=== PATIENT | female | born 1990 | race African-American/Black ===

== ENCOUNTER 2017-12-01 08:26 | Emergency (ER) | payer SELFPAY ==
[2017-12-01 09:15] LABS: Absolute Lymphocytes (CBC) 2.1 K/uL (0.7-4.9); Absolute Monocytes 0.4 K/uL (0.1-1.3); Absolute Neutrophil 3.7 K/uL (1.8-8.0); Basophils % 0.5 % (0-1.3); Eosinophils % 2.2 % (0-4.4); Hematocrit 37.2 % (36.0-45.0); Lymphocytes % 32.9 % (15.3-44.8); MCV 90.6 fL (80-100); MPV 7.9 fL (7.6-11.3); Monocytes % 6.7 % (3.3-12.3); RBC Red Blood Cell Count 4.11 M/uL (3.86-4.86)
[2017-12-01 09:22] LABS: BUN Blood Urea Nitrogen 14 mg/dL (7-18); Bicarbonate 25 mmol/L (21-32); Glucose Level 82 mg/dL (74-106); Sodium Level 138 mmol/L (136-145); Troponin (Emerg Dept Use Only) < 0.02 ng/mL (0.0-0.045)
--- NOTE | 2017-12-01 10:12 | RAD REPORT ---
EXAM DESCRIPTION: CT - Chest For Pe Angio - 12/01/2017 9:52 am CLINICAL HISTORY: Chest pain. CHEST PAIN COMPARISON: No comparisons TECHNIQUE: CT angiogram of the pulmonary arteries was performed with MIP. All CT scans are performed using dose optimization technique as appropriate and may include automated exposure control or mA/KV adjustment according to patient size. FINDINGS: No evidence of pulmonary thromboembolism. No acute aortic finding demonstrated. The lungs are clear. No significant pericardial or pleural fluid. No concerning bony finding. IMPRESSION: No evidence of pulmonary thromboembolism. No acute lung findings.
--- NOTE | 2017-12-01 10:21 | ER ---
Nurse's Notes [facility] Name: Alisa Yanez Age: 27 yrs Sex: Female : 1990 Arrival Date: 12/01/2017 Time: 08:28 Bed 13 Private MD: Diagnosis: Chest pain on breathing Presentation: 12/01 08:37 Presenting complaint: Patient states: Left sided chest pain x 2 days. Pain is worse hb when deep inhalation and position change. Denies SOB/cough/fever/injury. Transition of care: patient was not received from another setting of care. Onset of symptoms was November 29, 2017. Risk Assessment: Do you want to hurt yourself or someone else? Patient reports no desire to harm self or others. Care prior to arrival: None. 08:37 Method Of Arrival: Ambulatory hb 08:37 Acuity: EBEN 3 hb 08:50 Initial Sepsis Screen: Does the patient meet any 2 criteria? No. Patient's initial la1 sepsis screen is negative. Does the patient have a suspected source of infection? No. Patient's initial sepsis screen is negative. 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 - Social history:: Smoking status: Patient/guardian denies using tobacco. - Ebola Screening: : No symptoms or risks identified at this time. Screenin:39 Abuse screen: Denies threats or abuse. Denies injuries from another. Nutritional hb screening: No deficits noted. Tuberculosis screening: No symptoms or risk factors identified. Fall Risk None identified. Assessment: 08:49 General: Appears in no apparent distress. Behavior is calm, cooperative. Pain: la1 Complains of pain in mid-sternal area Pain does not radiate. Pain began 2-3 days ago. Neuro: Level of Consciousness is awake, alert, obeys commands, Oriented to person, place, time, situation. Cardiovascular: Heart tones S1 S2 present Capillary refill < 3 seconds Patient's skin is warm and dry. Respiratory: Airway is patent Respiratory effort is even, unlabored, Respiratory pattern is regular, symmetrical, Breath sounds are clear bilaterally. GI: Abdomen is. : No signs and/or symptoms were reported regarding the genitourinary system. Vital Signs: 08:38 BP 122 / 69; Pulse 92; Resp 16; Temp 98.2; Pulse Ox 99% on R/A; Pain 6/10; hb ED Course: 08:28 Patient arrived in ED. as 08:32 Rachel Velazquez [facility]NP-C [facility]. kb 08:32 Danilo Cifuentes MD is Attending Physician. kb 08:37 Tera Beckman, RN is Primary Nurse. la1 08:37 EKG done, by agricultural service technician. reviewed by Rachel DELGADO. at1 08:38 Triage completed. hb 08:38 Arm band placed on right wrist. hb 08:49 No provider procedures requiring assistance completed. Inserted saline lock: 22 gauge la1 in left antecubital area, using aseptic technique. Blood collected. Patient maintains SpO2 saturation greater than 95% on room air. 08:50 Placed in gown. Bed in low position. Call light in reach. Pulse ox on. NIBP on. la1 09:00 Chest Pa And Lat (2 Views) XRAY In Process Unspecified. EDMS 09:37 Patient moved to radiology. jg6 09:52 Chest For PE Angio CT In Process Unspecified. EDMS 10:34 IV discontinued, intact, bleeding controlled, No redness/swelling at site. Pressure hb dressing applied. Administered Medications: 10:34 Not Given (Patient Refused): TORadol 30 mg IVP once hb Outcome: 10:20 Discharge ordered by . kb 10:34 Discharged to home ambulatory, with family. hb 10:34 Condition: stable 10:34 Discharge instructions given to patient, Instructed on discharge instructions, follow up and referral plans. medication usage, Demonstrated understanding of instructions, follow-up care, medications. 10:35 Patient left the ED. hb Signatures: Dispatcher [employer] EDMS Rachel Velazquez FNP-C FNP-Eloise Alonzo Amanda, manager field investigations EKG Tat1 Tera Beckman RN RN la1 Jennifer Avila RN RN hb Garcia, Jessica [email or web address] Corrections: (The following items were deleted from the chart) 08:39 08:37 Presenting complaint: Patient states: Left sided chest pain x 2 days. Pain is hb worse when deep inhalation and position change. Denies SOB/fever/injury. hb
--- NOTE | 2017-12-01 10:21 | EDPHYS ---
Physician Documentation [facility] Name: Alisa Yanez Age: 27 yrs Sex: Female : 1990 Arrival Date: 12/01/2017 Time: 08:28 Bed 13 Private MD: ED Physician Danilo Cifuentes HPI: 12/01 08:40 This 27 yrs old Black Female presents to ER via Ambulatory with complaints of Chest kb Pain. 08:40 The patient or guardian reports chest pain that is located primarily in the anterior kb aspect of left upper chest and mid-sternal area. The pain does not radiate. Associated signs and symptoms: The patient has no apparent associated signs or symptoms. The chest pain is described as sharp. Duration: The patient or guardian reports multiple episodes. Modifying factors: The symptoms are alleviated by nothing. the symptoms are aggravated by activity, breathing, deep breath, movement, palpation of area. Severity of pain: At its worst the pain was moderate in the emergency department the pain is unchanged. The patient has not experienced similar symptoms in the past. The patient has not recently seen a physician. Pt reports pain to mid and left chest that started 2 days ago. Worse with inspiration, movement and palpation. Denies shortness of breath. Denies injury or trauma. . 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 - Social history:: Smoking status: Patient/guardian denies using tobacco. - Ebola Screening: : No symptoms or risks identified at this time. ROS: 08:36 Constitutional: Negative for fever, chills, and weight loss, Respiratory: Negative for kb shortness of breath, cough, wheezing, and pleuritic chest pain, Abdomen/GI: Negative for abdominal pain, nausea, vomiting, diarrhea, and constipation, Back: Negative for injury and pain, MS/Extremity: Negative for injury and deformity, Skin: Negative for injury, rash, and discoloration, Neuro: Negative for headache, weakness, numbness, tingling, and seizure. 08:36 Cardiovascular: Positive for chest pain, with movement, of the anterior aspect of left upper chest and mid-sternal area, Negative for edema, orthopnea, palpitations, paroxysmal nocturnal dyspnea. Exam: 08:36 Constitutional: This is a well developed, well nourished patient who is awake, alert, kb and in no acute distress. Head/Face: Normocephalic, atraumatic. Cardiovascular: Regular rate and rhythm with a normal S1 and S2. No gallops, murmurs, or rubs. Normal PMI, no JVD. No pulse deficits. Respiratory: Lungs have equal breath sounds bilaterally, clear to auscultation and percussion. No rales, rhonchi or wheezes noted. No increased work of breathing, no retractions or nasal flaring. Abdomen/GI: Soft, non-tender, with normal bowel sounds. No distension or tympany. No guarding or rebound. No evidence of tenderness throughout. Back: No spinal tenderness. No costovertebral tenderness. Full range of motion. Skin: Warm, dry with normal turgor. Normal color with no rashes, no lesions, and no evidence of cellulitis. MS/ Extremity: Pulses equal, no cyanosis. Neurovascular intact. Full, normal range of motion. Neuro: Awake and alert, GCS 15, oriented to person, place, time, and situation. Cranial nerves II-XII grossly intact. Motor strength 5/5 in all extremities. Sensory grossly intact. Cerebellar exam normal. Normal gait. 08:36 Chest/axilla: Inspection: normal, Palpation: tenderness, that is moderate, of the anterior aspect of left upper chest and mid-sternal area, that totally reproduces the patient's complaints. Vital Signs: 08:38 BP 122 / 69; Pulse 92; Resp 16; Temp 98.2; Pulse Ox 99% on R/A; Pain 6/10; hb MDM: 08:35 Patient medically screened. kb 08:36 Data reviewed: vital signs, nurses notes. Data interpreted: Pulse oximetry: on room air kb is 100 %. Interpretation: normal. 10:20 Counseling: I had a detailed discussion with the patient and/or guardian regarding: the kb historical points, exam findings, and any diagnostic results supporting the discharge/admit diagnosis, lab results, radiology results, the need for outpatient follow up, a family practitioner, to return to the emergency department if symptoms worsen or persist or if there are any questions or concerns that arise at home. 12/01 08:36 Order name: CBC with Diff; Complete Time: 09:18 kb 12/01 08:36 Order name: Basic Metabolic Panel; Complete Time: 09:22 kb 12/01 08:36 Order name: Troponin (emerg Dept Use Only); Complete Time: 09:22 kb 12/01 08:36 Order name: D-Dimer; Complete Time: 09:21 kb 12/01 09:56 Order name: Urine Dipstick--Ancillary (enter results); Complete Time: 10:32 bd 12/01 09:56 Order name: Urine --Ancillary (enter results); Complete Time: 10:32 bd 12/01 08:36 Order name: Chest Pa And Lat (2 Views) XRAY kb 12/01 08:36 Order name: IV Start; Complete Time: 08:50 kb 12/01 08:36 Order name: EKG; Complete Time: 08:37 kb 12/01 08:36 Order name: EKG - Nurse/Tech; Complete Time: 08:50 kb 12/01 09:19 Order name: Chest For PE Angio CT; Complete Time: 10:18 kb 12/01 09:19 Order name: Urine Test (obtain specimen); Complete Time: 09:38 kb Administered Medications: 10:34 Not Given (Patient Refused): TORadol 30 mg IVP once hb Disposition: 12/01/17 10:20 Discharged to Home. Impression: Chest pain on breathing. - Condition is Stable. - Discharge Instructions: Chest Wall Pain, [id number]. - Medication Reconciliation Form, Thank You Letter, Antibiotic Education, Prescription Opioid Use form. - Follow up: Emergency Department; When: As needed; Reason: Worsening of condition. Follow up: Private Physician; When: 2 - 3 days; Reason: Recheck today's complaints, Continuance of care, Re-evaluation by your physician. Addendum: 12/11/2017 08:00 Co-signature as Attending Physician, Danilo Cifuentes MD I agree with the assessment and k dr plan of care. Signatures: Dispatcher [employer] EDMS Rachel Velazquez, GANG LEADER-C DILEEP-Danilo Perez MD MD [facility] Jennifer Avila RN RN Corrections: (The following items were deleted from the chart) 12/01 10:35 10:20 12/01/2017 10:20 Discharged to Home. Impression: Chest pain on breathing. hb Condition is Stable. Forms are Medication Reconciliation Form, Thank You Letter, Antibiotic Education, Prescription Opioid Use. Follow up: Emergency Department; When: As needed; Reason: Worsening of condition. Follow up: Private Physician; When: 2 - 3 days; Reason: Recheck today's complaints, Continuance of care, Re-evaluation by your physician. kb
--- NOTE | 2017-12-01 10:27 | EKG ---
Test Date: 2017-12-01 Test Time: 08:38:43 [place]: GRETCHEN MEASUREMENT RESULTS: Intervals: Rate: 67 LA: 126 QRSD: 86 QT: 380 QTc: 401 [place]: P: 77 LA: 126 QRS: 29 T: 29 INTERPRETIVE STATEMENTS: Normal sinus rhythm Normal ECG No previous ECG available for comparison Electronically Signed On 12-01-17 10:26:05 CDT by Rex Burrell
[2017-12-01 10:29] LABS: Urine Blood 2+ (NEG); Urine Glucose NEGATIVE (NEG); Urine Protein NEGATIVE (NEG); Urine Specific Gravity >1.030 (1.005-1.030); Urine pH 5.5 (5.0-7.0)
[2017-12-01] MEDS ORDERED: KETOROLAC 30 MG/ML INJ ONE (10:34)
[2017-12-01 10:39] VITALS: BP 122/69; TEMP 98.2; O2SAT 99
--- NOTE | 2017-12-01 16:54 | RAD REPORT ---
EXAM DESCRIPTION: Seymour Krause (2 Views)12/01/2017 9:02 am CLINICAL HISTORY: Chest pain COMPARISON: none FINDINGS: The lungs appear clear of acute infiltrate. The heart is normal size IMPRESSION: No acute abnormalities displayed
== END 2017-12-01 10:35 | disposition home or self-care (01) ==
LOC: ER 08:26
DX: R07.1 Chest pain on breathing (principal)
CPT/HCPCS: 36415; 71046; 71275; 80048; 81003; 81025; 84484; 85025; 85379; 93005; 99284; Q9967

== ENCOUNTER 2022-12-04 08:48 | Emergency (ER) | payer SELFPAY ==
--- OUTSIDE RECORDS SUMMARY | 2022-12-04 08:52 | XMS REPORT | Continuity of Care Document ---
:1990 Author Organization [facility] t Address [address] [place] [address] Care Team Providers Name Role Phone JACOBO PARRA Primary Care Physician Unavailable VALENTINA PATEL Attending Clinician Unavailable Valentina Patel MD Attending Clinician Doctor Unassigned, [place] Attending Clinician Unavailable VALENTINA PATEL Admitting Clinician Unavailable Valentina Patel MD Admitting Clinician Payers Payer Name Policy Type Policy Number Effective Date Expiration Date S ource [place]ICAID [place] [id number] 2016 2019 00:00:00 00:00:00 Problems Condition Condition Condition Status Onset Resolution Last Treating Co mments Source Name Details Category Date Date Treatment Clinician Date PROM PROM Disease Active Univers (premature (premature 5-11 it y of rupture of rupture of [place] membranes[place] membranes) 00 Mi dical Branch Liveborn Liveborn Disease Active 2016-02 Unive rs by infant by 0-17 ity of vaginal vaginal 00:00: [place] delivery delivery 00 Medica l Branch Normal Normal Disease Active 2016-02 Univers labor and labor and 0-17 ity of delivery delivery 00:00: [place] [address] Medical Branch Obesity Obesity Disease Active 2016-02 Univers (BMI (BMI 0-17 ity of 30-39.9) 30-39.9) 00:00: [place] [address] Medical Branch Normal Normal Disease Active 2016-02 Univers labor labor 0-17 ity of 00:00: [place] [address] Medical Branch No No Disease Active 2016-02 Univers 0-17 ity of care in care in 00:00: [place] current current 00 Medical , , Br anch third third trimester trimester Allergies, Adverse Reactions, Alerts Allergy Allergy Status Severity Reaction(s) Onset Inactive Treating Comm ents Source Name Type Date Date Clinician NO KNOWN Drug Active Univers ALLERGIE Class ity of [facility] Social History Social Habit Start Date Stop Date Quantity Comments Source ASSERTION [facility] Sex Assigned At Uni versity [facility] Exposure to SARS-CoV-2 Not sure Un iversity [facility] (event) [facility] Smoking Status Start Date Stop Date Source Former smoker 2019-06-05 00:00:00 2019-06-05 00:00:00 Universi [facility] Medications Ordered Filled Start Stop Current Ordering Indication Dosage Frequency Signature Comments Components Source Medication Medication Date Date Medication? Clinician (SIG) Name Name medroxyPROG 150mg 150 mg, U nivers ESTERone 5-12 05-12 Intramuscu ity of (DEPO-PROVE 14:15: 14:08 lar, ONCE, [place] RA) 00 :00 1 dose, Medical injection Tue Branch 150 mg 20 at 0915, Routine 2019-0 Yes [id number] 1{tbl} Take 1 Univers vitamin 5-12 tablet by ity of w/FA tablet 00:00: mouth [place] daily. Medical Branch docusate 2020-0 Yes [id number] 240mg Take 1 U nivers calcium 240 5-12 capsule by it y of mg capsule 00:00: mouth once [place] 00 daily as Medical needed for Branch Constipati on. ferrous 2020-0 Yes [id number] 325mg Take 1 Un lisa sulfate 325 5-12 tablet by ity of mg (65 mg 00:00: mouth 2 [place] iron) 00 (two) Medical tablet times Branch daily. ibuprofen 2020-0 Yes [id number] 600mg Take 1 Univers 600 mg 5-12 tablet by ity of tablet 00:00: mouth [place] 00 every 6 Medical (six) Branch hours as needed (Pain). Take with food or milk. 2020-0 Yes [id number] 1{tbl} Take 1 Univers vitamin 5-12 tablet by ity of w/FA tablet 00:00: mouth [place] 00 daily. Medical Branch docusate 2020-0 Yes [id number] 240mg Take 1 U nivers calcium 240 5-12 capsule by it y of mg capsule 00:00: mouth once [place] 00 daily as Medical needed for Branch Constipati on. ferrous 2020-0 Yes [id number] 325mg Take 1 Un lisa sulfate 325 5-12 tablet by ity of mg (65 mg 00:00: mouth 2 [place] iron) 00 (two) Medical tablet times Branch daily. ibuprofen 2020-0 Yes [id number] 600mg Take 1 Univers 600 mg 5-12 tablet by ity of tablet 00:00: mouth [place] 00 every 6 Medical (six) Branch hours as needed (Pain). Take with food or milk. rho(D) 2020-0 Yes 300ug 300 mcg, Univer s immune 5-11 Intramuscu ity of globulin 21:39: lar, ONCE, [place] (RHOGAM) 19 For 1 Medical syringe 300 dose, Branch mcg Conditiona l, Routine HYDROcodone 2020-0 Yes 1{tbl} 1 tablet, Univers -acetaminop 5-11 Oral, ity of hen (NORCO 21:39: Q6HPRN, [place] 5) 5-325 mg 14 Starting Medi arin tablet 1 Mon Branch tablet 06/19/19 at 1639, Until Discontinu ed, Routine, Pain (scale 7-10) ibuprofen 2020-0 Yes 600mg 600 mg, Univ ers (IBU) 5-11 Oral, ity of tablet 600 21:39: Q6HPRN, [place] mg 14 Starting Medical Mon Branch 06/19/19 at 1639, Until Discontinu ed, Routine, Pain (scale 4-6) acetaminoph 2020-0 Yes 650mg 650 mg, Un lisa en 5-11 Oral, ity of (TYLENOL) 21:39: Q6HPRN, [place] tablet 650 14 Starting Medic al mg Mon Branch 06/19/19 at 1639, Until Discontinu ed, Routine, Pain (scale 1-3) diphenhydrA 2020-0 Yes 25mg 25 mg, Univ ers MINE 5-11 Oral, ity of (BENADRYL) 21:39: Q6HPRN, [place] tablet 25 14 Starting Medica l mg Mon Branch 06/19/19 at 1639, Until Discontinu ed, Routine, Sleep, Itching ondansetron 2020-0 Yes 4mg 4 mg, Slow Univers (ZOFRAN 5-11 IV Push, ity of (PF)) 21:39: Q8HPRN, [place] injection 4 14 Starting Medi arin mg [facility] Branch 06/19/19 at 1639, Until Discontinu ed, Routine, Nausea and Vomiting (N/V) simethicone 2020-0 Yes 160mg 160 mg, Un lisa (GAS RELIEF 5-11 Oral, ity of (SIMETHICON 21:39: PC+HSPRN, [place] E)) 14 Starting Medical chewable [facility] tablet 160 06/19/19 at mg 1639, Until Discontinu ed, Routine, Gas docusate 2020-0 Yes 240mg 240 mg, Unive rs calcium 5-11 Oral, ity of (SURFAK) 21:39: QDAILYPRN, [place] capsule 240 14 Starting Medi arin mg [facility] Branch 06/19/19 at 1639, Until Discontinu ed, Routine, Constipati on magnesium 2020-0 Yes 30mL 30 mL, Univer s hydroxide 06-18 Oral, ity of (MILK OF 21:39: QDAILYPRN, [place] MAGNESIA) 14 Starting Medica l 400 mg/5 mL Mon [place] suspension 06/19/19 at 30 mL 1639, Until Discontinu ed, Routine, Constipati on benzocaine- 2020-0 Yes Topical, Un lisa menthol 5-11 PRN, ity of (DERMOPLAST 21:39: [place] ) 20-0.5 % 14 Mon Medical topical 06/19/19 at Branch spray 1639, Until Discontinu ed, Routine, Perineum discomfort LR 1000 mL 2019-0 2020- No 2mU/min at 6-120 Univers + oxytocin 06-18 05-11 mL/hr, IV ity of 20 units IV 20:55: 21:39 Infusion, [place] Solution 28 :20 TITRATE, Medical Starting Branch 06/19/19 at 1555, Until 06/19/19 at 1639, JOEL D5W-LR IV 2019-0 2020- No 1000mL at 125 Uni vers infusion 06-18 05-11 mL/hr, IV ity o f 1,000 mL 20:00: 21:39 Infusion, [place] 00 :20 CONTINUOUS Medical , Starting Branch 06/19/19 at 1500, Until 06/19/19 at 1639, Routine FENTanyl PF 2020-0 2020- No 100ug 100 mcg, Univers (SUBLIMAZE 06-18 Slow IV ity o f (PF)) 19:46: 21:39 Push, [place] injection 14 :20 Q1HPRN, Medical 100 mcg Starting Branch [facility] 06/19/19 at 1446, Until Wed06/19/19 at 1639, Routine, contractio n pain without an epidural and SVE < 8 cm and Cat I strip lactated 2020-0 2020- No 500mL at 999 Unive rs ringers IV 06-18-11 mL/hr, 500 it y of infusion 19:45: 21:39 mL, IV [place] 500 mL 16 :20 Infusion, Medical PRN - SEE Branch INSTRUCTIO NS, Starting Wed06/19/19 at 1445, Until Wed06/19/19 at 1639, Routine terbutaline 2020-0 2020- No .25mg 0.25 mg, Univers (BRETHINE) 06-05 Subcutaneo it y of injection 00:55: 00:59 us, ONCE, [place] 0.25 mg 00 :00 1 dose, Medical [facility] 06/05/19 at 2000, Routine D5W-LR IV 2020-0 Yes 1000mL at 150 Univ ers infusion 4-27 mL/hr, IV ity of 1,000 mL 21:00: Infusion, [place] 00 CONTINUOUS Medical , Starting Branch [facility] 06/05/19 at 1600, Until Discontinu ed, Routine lactated 2020-0 2020- No 1000mL at 999 Univ ers ringers IV 06-04 04-27 mL/hr, ity of infusion 21:00: 21:04 1,000 mL, [place] 1,000 mL 00 :00 IV Medical Infusion, Branch ONCE, 1 dose, [facility] 06/05/19 at 1600, STAT 2016- Yes 1{tbl} Take 1 Unive rs vitamin 0-19 tablet by ity of w/FA tablet 00:00: mouth [place] 00 daily. [facility] docusate 2016-02 Yes 240mg Take 1 Univer s calcium 240 0-19 capsule by it y of mg capsule 00:00: mouth once [place] 00 daily as Medical needed for Branch Constipati on. ferrous 2016-02 Yes 325mg Take 1 Univers sulfate 325 0-19 tablet by ity of mg (65 mg 00:00: mouth 2 [place] iron) 00 (two) Medical tablet times Branch daily. ibuprofen 2016-02 Yes 600mg Take 1 Unive rs 600 mg 0-19 tablet by ity of tablet 00:00: mouth [place] 00 every 6 Medical (six) Branch hours as needed for Pain (scale 1-3) or Pain (scale 4-6) (Pain). Take with food or milk. 2016-02- No 1{tbl} Take 1 Univ ers vitamin 0-19 05-12 tablet by ity of w/FA tablet 00:00: 00:00 [place] :[place] daily. Medical Branch docusate 2016-02- No 240mg Take 1 Unive rs calcium 240 0-19 05-12 capsule by i ty of mg capsule 00:00: 00:00 mouth once [place] 00 :00 daily as Medical needed for Branch Constipati on. ferrous 2016-02- No 325mg Take 1 Univer s sulfate 325 0-19 05-12 tablet by it y of mg (65 mg 00:00: 00:00 mouth [place] iron) 00 :00 (two) Medical tablet times Branch daily. ibuprofen 2016-02- No 600mg Take 1 Univ ers 600 mg 0-19 05-12 tablet by ity of tablet 00:00: 00:00 mouth [place] 00 :00 every 6 Medical (six) Branch hours as needed for Pain (scale 1-3) or Pain (scale 4-6) (Pain). Take with food or milk. Vital Signs Vital Name Observation Time Observation Value Comments Source Body temperature 2019-06-21 13:00:00 36.72 Shalini [facility] Respiratory rate 2019-06-21 13:00:00 16 /min [facility] Oxygen saturation in 2019-06-21 13:00:00 100 /min [facility] Arterial blood by [facility] Pulse oximetry Branch Systolic blood 2019-06-21 13:00:00 118 mm[Hg] Univer sity of pressure [facility] Diastolic blood 2019-06-21 13:00:00 69 mm[Hg] [facility] Heart rate 2019-06-21 13:00:00 72 /min Universi [facility] Body weight 2019-06-19 19:45:00 86.183 kg [facility] BMI 2019-06-19 19:45:00 32.61 kg/m2 Universi [facility] Body height 2019-06-19 19:20:00 162.6 cm [facility] Systolic blood 2019-06-06 01:00:00 107 mm[Hg] [facility] Diastolic blood 2019-06-06 01:00:00 69 mm[Hg] [facility] rate 2019-06-06 01:00:00 85 /min [facility] Respiratory rate 2019-06-06 01:00:00 18 /min [facility] Oxygen saturation in 2019-06-06 00:30:00 100 /min [facility] Arterial blood by [facility] Pulse oximetry [place] Body temperature 2019-06-06 00:00:00 36.61 Shalini [facility] Body height 2019-06-05 19:26:00 162.6 cm [facility] Body weight 2019-06-05 19:26:00 65.318 kg [facility] BMI 2019-06-05 19:26:00 24.72 kg/m2 [facility] Procedures Procedure Date / Time Performing Clinician Source Performed CBC WITH DIFFERENTIAL 2019-06-20 09:27:00 Valentina Patel [facility] VENOUS CORD GAS 2019-06-19 21:29:[address] [facility] CORONAVIRUS COVID-19 2019-06-19 20:13:00 Valentina Patel [facility] HB ABO GROUPING 2019-06-19 20:00:[address] [facility] RHO (D) IMMUNE GLOBULIN 2019-06-19 20:00:00 Valentina Patel [facility] CBC WITH DIFFERENTIAL 2019-06-19 19:52:00 Valentina Patel [facility] HEPATITIS B SURFACE 2019-06-19 19:52:00 Valentina Patel [facility] ADC OR ERVIN ONLY - RPR 2019-06-19 19:52:00 [facility] AG-AB WITH REFLEX 2019-06-19 19:52:00 [facility] HOSPITAL ADMISSION 2019-06-19 05:01:00 Doctor Unacesar, [facility] [place] Medical Branch US PELVIS > 14 2019-06-05 22:36:14 [facility] ADC CLC OR LCC ONLY - WET 2019-06-05 20:48:00 [facility] Branch AMYLASE 2019-06-05 20:41:00 Valentina Patel [place] [facility] [place] [facility] LIPASE 2019-06-05 20:41:00 Valentina Patel [place] [facility] COMP. METABOLIC PANEL 2019-06-05 20:41:00 Valentina Patel [facility] ([id number]) [facility] CBC WITH DIFFERENTIAL 2019-06-05 20:41:00 Valentina Patel [facility] HEPATITIS B SURFACE 2019-06-05 20:41:00 Valentina Patel [facility] ANTIGEN [facility] Branch HIV 1/2 AG-AB WITH REFLEX 2019-06-05 20:41:00 [facility] 2019-06-05 20:40:00 Valentina Patel [place] o [facility] PATIENT FINANCIAL 2019-06-05 18:57:16 Doctor Unasaturninoigned, [facility] POLICY [place] [facility] NO SHOW OR MISSED 2019-06-05 18:56:55 Doctor Pedro, [facility] APPOINTMENT POLICY [place] [facility] Bran h ACKNOWLEDGEMENT NOTICE OF PRIVACY 2019-06-05 18:55:55 Doctor Unacesar, [facility] PRACTICES [place] [facility] CONSENT/REFUSAL FOR 2019-06-05 18:55:38 Doctor Pedro, [facility] DIAGNOSIS AND TREATMENT [place] [facility] ASSIGNMENT OF BENEFITS 2019-06-05 18:55:22 Doctor Unassigned, [facility] [place] [facility] [place] Encounters Start End Encounter Admission Attending Care Care Encounter Source Date/Time Date/Time Type Type Clinicians Facility Department ID 2019-06-19 Inpatient P VALENTINA PATEL [facility] LASHA [id number] Univers 14:38:31 ity of [place] Medical Branch 2019-06-19 2019-06-21 [facility] Valentina Patel [facility] [id number] Univers 14:38:31 11:30:00 Encounter [place] [id number] ity of [place] [id number] [address] 2019-06-19 2019-06-19 Orders Doctor SOHAIL [id number] Univers 00:00:00 00:00:00 Only Unassigned, JERED [id number] [place] [facility] [id number] [place] [id number] [place] [address] Branch 2019-06-05 2019-06-05 [facility] Valentina Patel [facility] [id number] Univers 13:55:00 21:40:00 Encounter Gaston Echevarria [id number] ity of [place] [id number] [facility] [id number] [address] 2019-06-05 2019-06-05 Outpatient P VALENTINA PATEL [facility] LASHA [id number] Univers 13:55:00 21:40:00 ity of [facility] Results Test Description Test Time Test Comments Results Result Comments Source CBC WITH DIFFERENTIAL 2019-06-20 10:03:00 Test Item Value Reference Range Interpretation Comme nts WBC (test code = 6690-2) See_Comment [A utomated message] The system which ge nerated this result transmit laisha reference range: 4.30 - 1 1.10 10*3/?L. The reference r gregg was not used to interpr et this result as normal/abnor mal. RBC (test code = 789-8) See_Comment L [Au tomated message] The system which [employer] nerated this result transmit laisha reference range: 3.93 - 5 .25 10*6/?L. The reference r gregg was not used to interpr et this result as normal/abnor mal. HGB (test code = 718-7) 8.0 g/dL 11.6-15 L HCT (test code = 4544-3) 26.0 % 35.7-45.2 L MCV (test code = 787-2) 88.1 fL 80.6-95.5 MCH (test code = 785-6) 27.1 pg 25.9-32.8 MCHC (test code = 786-4) 30.8 g/dL 31.6-35.1 L RDW-SD (test code = 65671-4) 43.4 fL 39-49.9 RDW-CV (test code = 788-0) 13.5 % 12-15.5 PLT (test code = 777-3) See_Comment [Au tomated message] The system which ge nerated this result transmit laisha reference range: 166 - 35 8 10*3/?L. The reference range was not used to interpret th is result as normal/abnormal . MPV (test code = 88905-7) 10.3 fL 9.5-12.9 NRBC/100 WBC (test code = See_Comment [ Automated message] The 2734380941) system which ge nerated this result transmit laisha reference range: 0.0 - 10 .0 /100 WBCs. The reference r gregg was not used to interpr et this result as normal/abnor mal. NRBC x10^3 (test code = <0.01 See_Comment [Au tomated message] The 9493874756) system which ge nerated this result transmit laisha reference range: 10*3/?L. The reference range was not u sed to interpret this result as normal/abnormal . GRAN MAT (NEUT) % (test code 74.8 % = 770-8) IMM GRAN % (test code = 0.50 % 6021564296) LYMPH % (test code = 736-9) 15.9 % MONO % (test code = 5905-5) 7.9 % EOS % (test code = 713-8) 0.6 % BASO % (test code = 706-2) 0.3 % GRAN MAT x10^3(ANC) (test 8.23 10*3/uL 1.88-7.09 H code = 9907251181) IMM GRAN x10^3 (test code = 0.05 10*3/uL 0-0.06 6945922553) LYMPH x10^3 (test code = 1.75 10*3/uL 1.32-3.29 731-0) MONO x10^3 (test code = 0.87 10*3/uL 0.33-0.92 742-7) EOS x10^3 (test code = 0.07 10*3/uL 0.03-0.39 711-2) BASO x10^3 (test code = 0.03 10*3/uL 0.01-0.07 704-7) Lab Interpretation (test Abnormal code = 87862-4) [facility] - [id number] 06:01:00 Test Item Value Reference Range Interpretation Comments RPR (Qualitative) (test code = Nonreactive Nonreactive 57524-6) Lab Interpretation (test code = Normal 12202-8) [facility] Surface [id number] 23:41:00 Test Item Value Reference Range Interpretation Comments HBsAg Semi-Quantitative (test code = Negative Negative 5195-3) [facility]D) IMMUNE [id number] 22:17:30 Test Item Value Reference Range Interpretation Comments RHIG CANDIDATE? No- see comment Patient i s not a (test code = candidate for R hIg- 5055) Patient is Rh Positive.Perfor med at [facility] Laboratory Services - [facility] Blood [address] [place], [place] [address]Toll Free: [phone] A No. [id number] [facility]HIV [facility]2 AG-AB WITH [id number] 21:59:00 Test Item Value Reference Range Interpretation Comments HIV Negative Negative Semi-quantitative (test code = 03064-1) FATEMEH (test code = Non-reactive for HIV-1 FATEMEH) antigen and HIV-1/HIV-2 antibodies. ?No laboratory evidence of HIV infection. ?Repeat in 2-4 weeks if acute HIV infection is suspected. [facility] Center[facility] Cord [id number] 21:36:00 Test Item Value Reference Range Interpretation Comments VENOUS BASE EXCESS, mEq/L CORD (test code = 1633190503) VENOUS PH, CORD (test 7.25-7.45 code = 4129564163) VENOUS PC02, CORD See_Comment [Automate d message] The (test code = system which ge nerated 1741911468) this result tra nsmitted reference range : 27 - 49 mmHg. The refer ence range was not used to interpret this result as normal/abnormal . VENOUS PO2, CORD (test See_Comment [Aut omated message] The code = 9280554162) system [facility] generated this result tra nsmitted reference range : 17 - 41 mmHg. The refer ence range was not used to interpret this result as normal/abnormal . VENOUS BICARBONATE, See_Comment [Automa laisha message] The CORD (test code = system [facility] ch generated [id number]) this result tra nsmitted reference range : 12 - 29 mEq/L. The refe rence range was not used to interpret this result as normal/abnormal . [facility] Center[facility] Cord [id number] 21:33:00 Test Item Value Reference Range Interpretation Comments BASE EXCESS, CORD mEq/L (test code = 7069643982) AC PH, CORD (BEAKER) 7.18-7.38 (test code = 5806652051) PC02, CORD (test code See_Comment [Auto mated message] The = 3475464375) system which g enerated this result transmit laisha reference range : 32 - 66 mmHg. The refer ence range was not used to interpret this result as normal/abnormal . PO2, CORD (test code See_Comment [Autom ated message] The = 3717571700) system which g enerated this result transmit laisha reference range : 10 - 30 mmHg. The refer ence range was not used to interpret this result as normal/abnormal . BICARBONATE, CORD See_Comment [Automate d message] The (test code = system which ge nerated this 2299829668) result transmit laisha reference range : 17 - 27 mEq/L. The refe rence range was not used to interpret this result as normal/abnormal . [facility] CenterCORON[facility]IRUS COVID-19 [id number] 20:46:00 Test Item Value Reference Range Interpretation Comments SARS-CoV-2 (test code = Not Detected Not Detected 25736-9) FATEMEH (test code = FATEMEH) ID NOW COVID-19 Assay is an isothermal nucleic acid amplification test intended for the qualitative detection of nucleic acid from SARS-CoV-2 viral RNA in nasopharyngeal (SENIOR MARKETING COORDINATOR) specimens. It is used under Emergency Use Authorization (EUA) by FDA. The limit of detection (LOD) of the assay is 125 Genome Equivalents/mL. A positive result is indicative of the presence of SARS-CoV-2 RNA. ?Clinical correlation with patient history and other diagnostic information is necessary to determine patient infection status. A negative (Not Detected) result does not preclude SARS-CoV-2 infection. Clinical correlation with patient history and other diagnostic information should be used in patient management decisions. Invalid: Please collect a new specimen for repeat patient testing if clinically indicated. Lab Interpretation Normal (test code = 70412-7) [facility] CenterType and Screen - ONCE [id number] 20:45:47 Test Item Value Reference Range Interpretation Comments ABO & RH (test code A Positive Performe d at [facility] = 20) Laboratory Serv [facility] Blood Bank[address] [place], [place] [address]Toll Free: [phone] A No. [id number] IAT (test code = Negative Performed a t [facility] 1185) Laboratory Serv [facility] Blood Bank1 [address] [place] [address] Free: [phone] A No. [id number] [facility] CenterCBC WITH [id number] 20:19:00 Test Item Value Reference Range Interpretation Comments WBC (test code = See_Comment [Automated 0990-2) message] The sy stem which generated this result transmitted reference range : 4.30 - 11.10 10*3/?L. The reference range was not used to interpret this result as normal/abnormal . RBC (test code = See_Comment L [Automated 719-8) message] The sy stem which generated this result transmitted reference range : 3.93 - 5.25 10*6/?L. The reference range was not used to interpret this result as normal/abnormal . HGB (test code = 9.5 g/dL 11.6-15 L 718-7) HCT (test code = 31.1 % 35.7-45.2 L 4544-3) MCV (test code = 88.1 fL 80.6-95.5 787-2) MCH (test code = 26.9 pg 25.9-32.8 785-6) MCHC (test code = 30.5 g/dL 31.6-35.1 L 786-4) RDW-SD (test code = 43.8 fL 39-49.9 06050-9) RDW-CV (test code = 13.5 % 12-15.5 788-0) PLT (test code = See_Comment H [Automated 777-3) message] The sy stem which generated this result transmitted reference range : 166 - 358 10*3/ ?L. The reference r gregg was not used to interpret this result as normal/abnormal . MPV (test code = 10.2 fL 9.5-12.9 57559-2) NRBC/100 WBC (test See_Comment [Automat ed code = 6547619108) message] The system which generated this result transmitted reference range : 0.0 - 10.0 /100 WBCs. The refer ence range was not u sed to interpret th is result as normal/abnormal . NRBC x10^3 (test code <0.01 See_Comment [Auto mated = 4043745604) message] The s ystem which generated this result transmitted reference range : 10*3/?L. The reference range was not used to interpret this result as normal/abnormal . GRAN MAT (NEUT) % 73.4 % (test code = 770-8) IMM GRAN % (test code 0.60 % = 5218209316) LYMPH % (test code = 17.9 % 736-9) MONO % (test code = 7.3 % 5905-5) EOS % (test code = 0.6 % 713-8) BASO % (test code = 0.2 % 706-2) GRAN MAT x10^3(ANC) 6.56 10*3/uL 1.88-7.09 (test code = 4878170210) IMM GRAN x10^3 (test 0.05 10*3/uL 0-0.06 code = 2839437651) LYMPH x10^3 (test code 1.60 10*3/uL 1.32-3.29 = 731-0) MONO x10^3 (test code 0.65 10*3/uL 0.33-0.92 = 742-7) EOS x10^3 (test code = 0.05 10*3/uL 0.03-0.39 711-2) BASO x10^3 (test code <0.03 0.01-0.07 = 704-7) Lab Interpretation Abnormal (test code = 59806-7) [facility] [id number] 02:39:00 Test Item Value Reference Range Interpretation Comments HBsAg Semi-Quantitative (test code = Negative Negative 5195-3) [facility]US PELVIS > 14 [id number] 02:17:33 1. Single live intrauterine at 36 weeks and 1 day gestational ageby ultrasound.2. No distinct acute sonographic abnormalities are seen in the pelvis atthis time.3. Anatomic survey significantly limited by advanced gestational age.Within the limits of this exam no distinct gross anatomic abno rmalitieswere observed. RL: 460 Ordering Physician: MARAG LEDESMA HISTORY: No care. COMPARISON: none Permanently recorded sonographic images were stored in the PACs system. LMP: 10/07/2018 Transabdominal imaging was performed. FINDINGS:There is a single live intrauterine gestation in cephalic position with ananterior placenta. ?Thereis a normal amount of amniotic fluid with an AFIof 11.25 cm. The cervix is not well evaluated due tooverlying position ofthe calvarial head. heart rate is 136 beats per minute. Anatomicsurvey significantly limited by advanced gestational age and limitationsthe sonographic window. Normal for chamber heart, kidneys, stomach bubble,urinary bladder, three-vessel cord, cord insertion, spine, nose, and lipswere seen. The intracranial structures and diaphragm were not wellevaluated. The digits on the extremities were also not able to be seenindividually. The following biometric data were obtained: BPD ?8.53 cm worsening gestational age of 34 weeks and 3 daysHC ? ?32.52 cm/s gestational age of 36 weeks and 6 daysAC ? ?32.52 cm for symmetry gestational age of 36 weeks and 4 daysFL ? ?7.13 cm for estimated gestational age of 36 weeks and 4 daysEFW [address] by dates: 34 weeks and 3 daysAge by US: ?? 36 weeks and 1 day [facility], Radiant Results Inft User - 06/05/2019 9:18 PM CDTOrdering Physician: VALENTINA PATEL HISTORY: No care.COMPARISON: nonePermanently recorded sonographic images were stored in the PACs system. LMP: 10/07/2018Transabdominal imaging was performed. FINDINGS:There is a single live intrauterine gestation in cephalic position with ananterior placenta. There is a normal amount of amniotic fluid with an AFIof 11.25 cm. The cervix is not well evaluated due to overlying position ofthe calvarial head. heart rate is 136 beats per minute. Anatomicsurvey significantly limited by advanced gestational age and limitationsthe sonographic window. Normal for chamber heart, kidneys, stomach bubble,urinary bladder, three-vessel cord, cord insertion, spine, nose, and lipswere seen. The intracranial structures and diaphragm were not wellevaluated. The digits on the extremities were also not able to be seenindividually. The following biometric data were obtained:BPD 8.53 cm worsening gestational age of 34 weeks and 3 daysHC 32.52 cm/s gestational age of 36 weeks and 6 daysAC 32.52 cm for symmetry gestational age of 36 weeks and 4 daysFL 7.13 cm for estimated gestational age of 36 weeksand 4 daysEFW [address] by dates: 34 weeks and 3 daysAge by US: 36 weeks and 1 dayIMPRESSION1. Single live intrauterine at 36 weeks and 1 day gestational ageby ultrasound.2. No distinct acutesonographic abnormalities are seen in the pelvis atthis time.3. Anatomic survey significantly limited by advanced gestational age.Within the limits of this exam no distinct gross anatomic abnormalitieswere observed.RL: 460 [facility] CenterHIV 1/2 AG-AB WITH [id number] 22:52:00 Test Item Value Reference Range Interpretation Comments HIV Negative Negative Semi-quantitative (test code = 35235-0) FATEMEH (test code = Non-reactive for HIV-1 FATEMEH) antigen and HIV-1/HIV-2 antibodies. ?No laboratory evidence of HIV infection. ?Repeat in 2-4 weeks if acute HIV infection is suspected. [facility]. METABOLIC PANEL (24712)2019-06-05 22:14:00 Test Item Value Reference Range Interpretation Comments NA (test code = 137 mmol/L 135-145 8024469976) K (test code = 3.8 mmol/L 3.5-5 5210537760) CL (test code = 105 mmol/L 98-108 3390976135) CO2 TOTAL (test code = 24 mmol/L 23-31 0316359985) AGAP (test code = 2-16 7206569619) BUN (test code = 5 mg/dL 7-23 L 3626766880) GLUCOSE (test code = 77 mg/dL 70-110 2992089876) CREATININE (test code = 0.58 mg/dL 0.5-1.04 5804355659) TOTAL BILI (test code = 0.4 mg/dL 0.1-1.2 8077044479) CALCIUM (test code = 9.5 mg/dL 8.6-10.6 3703333699) T PROTEIN (test code = 7.7 g/dL 6.3-8.2 1730276695) ALBUMIN (test code = 4.0 g/dL 3.5-5 0140458540) ALK PHOS (test code = 118 U/L 34-122 0111131391) ALTv (test code = 12 U/L 5-35 1742-6) AST(SGOT) (test code = 28 U/L 13-40 1915371643) eGFR Calculation mL/min/1.73m2 (Non-) (test code = 9793464565) eGFR Calculation mL/min/1.73m2 () (test code = 0141344589) FATEMEH (test code = FATEMEH) Association of Glomerular Filtration Rate (GFR) and Staging of Kidney Disease* + --+ --+ ------+| GFR (mL/min/1.73 m2) ?| With Kidney Damage ?| ?Without Kidney Damage+ --------+ --------+ +| ?>90 ?| ?Stage one ?| ? Normal ?+ ---+ ---+ -------+| ?60-89 ?| ?Stage two ?| ? Decreased GFR ? + --+ --+ ------+| ?30-59 ?| ?Stage three ?| ? Stage three ? + --+ --+ ------+| ?15-29 ?| ?Stage four ? | ? Stage four ?+ ---+ ---+ -------+| ?<15 (or dialysis) ? ?| ?Stage five ? | ? Stage five ?+ ---+ ---+ -------+ *Each stage assumes the associated GFR level has been in effect for at least three months. ?Stages 1 to 5, with or without kidney disease, indicate chronic kidney disease. Notes: Determination of stages one and two (with eGFR >59mL/min/1.73 m2) requires estimation of kidney damage for at least three months as defined by structural or functional abnormalities of the kidney, manifested by either:Pathological abnormalities or Markers of kidney damage (including abnormalities in the composition of the blood or urine or abnormalities in imaging tests). Lab Interpretation Abnormal (test code = 29920-6) [facility] CenterAMYLASE2020-04-27 22:13:00 Test Item Value Reference Range Interpretation Comments MARU (test code = 3663608754) 119 U/L 35-110 H Lab Interpretation (test code = Abnormal 23214-8) [facility] CenterLIPASE2020-04-27 22:13:00 Test Item Value Reference Range Interpretation Comments LIPASE (test code = 5770448305) 104 U/L 0-220 Lab Interpretation (test code = Normal 10349-3) [facility] CenterType and Screen - ONCE [id number] 21:58:41 Test Item Value Reference Range Interpretation Comments ABO & RH (test code A Positive Performe d at [facility] = 20) Laboratory Serv [facility] [place], [place] [address]Toll Free: [phone] A No. [id number] IAT (test code = Negative Performed a t [facility] 1185) Laboratory Serv [facility] [place], [place] [address]Toll Free: [phone] A No. [id number] [facility] OR [facility] ONLY - WET [id number] 21:35:00 Test Item Value Reference Range Interpretation Comments Wet Prep (test code = No Yeast, budding 0767924086) [facility] WITH [id number] 21:22:00 Test Item Value Reference Range Interpretation Comments WBC (test code = See_Comment [Automated 6690-2) message] The sy stem which generated this result transmitted reference range : 4.30 - 11.10 10*3/?L. The reference range was not used to interpret this result as normal/abnormal . RBC (test code = See_Comment L [Automated 789-8) message] The sy stem which generated this result transmitted reference range : 3.93 - 5.25 10*6/?L. The reference range was not used to interpret this result as normal/abnormal . HGB (test code = 9.4 g/dL 11.6-15 L 718-7) HCT (test code = 29.8 % 35.7-45.2 L 4544-3) MCV (test code = 87.1 fL 80.6-95.5 787-2) MCH (test code = 27.5 pg 25.9-32.8 785-6) MCHC (test code = 31.5 g/dL 31.6-35.1 L 786-4) RDW-SD (test code = 41.6 fL 39-49.9 70931-0) RDW-CV (test code = 13.2 % 12-15.5 788-0) PLT (test code = See_Comment [Automated 777-3) message] The sy stem which generated this result transmitted reference range : 166 - 358 10*3/ ?L. The reference r gregg was not used to interpret this result as normal/abnormal . MPV (test code = 10.1 fL 9.5-12.9 79658-8) NRBC/100 WBC (test See_Comment [Automat ed code = 4137457575) message] The system which generated this result transmitted reference range : 0.0 - 10.0 /100 WBCs. The refer ence range was not u sed to interpret th is result as normal/abnormal . NRBC x10^3 (test code <0.01 See_Comment [Auto mated = 3122230518) message] The s ystem which generated this result transmitted reference range : 10*3/?L. The reference range was not used to interpret this result as normal/abnormal . GRAN MAT (NEUT) % 75.3 % (test code = 770-8) IMM GRAN % (test code 0.60 % = 9392789454) LYMPH % (test code = 13.8 % 736-9) MONO % (test code = 9.9 % 5905-5) EOS % (test code = 0.1 % 713-8) BASO % (test code = 0.3 % 706-2) GRAN MAT x10^3(ANC) 5.80 10*3/uL 1.88-7.09 (test code = 4388298109) IMM GRAN x10^3 (test 0.05 10*3/uL 0-0.06 code = 4050394284) LYMPH x10^3 (test code 1.06 10*3/uL 1.32-3.29 L = 731-0) MONO x10^3 (test code 0.76 10*3/uL 0.33-0.92 = 742-7) EOS x10^3 (test code = <0.03 0.03-0.39 L 711-2) BASO x10^3 (test code <0.03 0.01-0.07 = 704-7) Lab Interpretation Abnormal (test code = 29225-6) [facility]"
--- NOTE | 2022-12-04 09:41 | EDPHYS ---
Physician Documentation [facility] Name: Alisa Yanez Age: 32 yrs Sex: Female : 1990 Arrival Date: 12/04/2022 Time: 08:48 Bed IW2 Private MD: ED Physician Ronni Meneses HPI: 12/04 09:49 This 32 yrs old Black Female presents to ER via Ambulatory with complaints of Ear Pain. sb4 09:49 The patient presents with drainage, a fullness, pain, swelling, tenderness. The sb4 complaints affect the left ear. Onset: The symptoms/episode began/occurred 1 week(s) ago. Modifying factors: The symptoms are alleviated by nothing, the symptoms are aggravated by touching. Associated signs and symptoms: Pertinent positives: vertigo, lightheadedness, Pertinent negatives: fever. The patient has not experienced similar symptoms in the past. The patient has not recently seen a physician. Historical: - Allergies: 09:05 No Known Drug Allergies; hb - Home Meds: 09:05 Claritin Oral [Active]; oral BC [Active]; hb - PMHx: 09:05 None; hb - PSHx: 09:05 None; hb ROS: 09:49 Constitutional: Negative for fever, chills, and weight loss, sb4 09:49 ENT: Positive for ear pain, foreign body sensation, 09:49 All other systems are negative, Exam: 09:49 Constitutional: This is a well developed, well nourished patient who is awake, alert, sb4 and in no acute distress. Head/Face: Normocephalic, atraumatic. Eyes: Extra-ocular motions intact. Periorbital areas with no swelling, redness, or edema. Skin: Warm, dry with normal turgor. Normal color with no rashes, no lesions, and no evidence of cellulitis. MS/ Extremity: Pulses equal, no cyanosis. Neurovascular intact. Full, normal range of motion. Neuro: Awake and alert, GCS 15, oriented to person, place, time, and situation. Motor strength 5/5 in all extremities. Sensory grossly intact. 09:49 ENT: External ear(s): swelling, that is moderate, of the left preauricular area, Ear canal(s): swelling, that is moderate, of the left canal, TM's: not visable, ear canal very swollen, patient cannot tolerate speculum, Examination of the other ear shows no obvious abnormality, Vital Signs: 09:04 BP 153 / 98; Pulse 78; Resp 16; Temp 98.4(O); Pulse Ox 98% on R/A; Weight 95.25 kg; hb Height 5 ft. 4 in. ; Pain 5/10; 09:04 Body Mass Index 36.05 (95.25 kg, 162.56 cm) hb 09:04 Pain Scale: Adult hb MDM: 09:28 Patient medically screened. sb4 09:49 Differential diagnosis: otitis media, otitis externa, ruptured TM, foreign body, acute sb4 otalgia, cerumen impaction. Data reviewed: vital signs, nurses notes, and as a result, I will discharge patient. Counseling: I had a detailed discussion with the patient and/or guardian regarding the historical points, exam findings, and any diagnostic results supporting the discharge/admit diagnosis, the need for outpatient follow up, an ENT specialist, smoking cessation. Administered Medications: 09:52 Drug: Rocephin (cefTRIAXone) IM 1 grams IM once Route: IM; Site: left deltoid; hb Disposition: 10:24 Co-signature as Attending Physician, Ronni Meneses MD I reviewed the patient's care rt provided by the Advanced Practice Provider and agree with the diagnosis and treatment plan. Disposition Summary: 12/04/22 09:40 Discharge Ordered Notes: Location: Home sb4 Problem: an ongoing problem sb4 Symptoms: are unchanged sb4 Condition: Stable sb4 Diagnosis - Acute suppurative otitis media without spontaneous rupture of ear drum, left ear sb4 Followup: sb4 - With: Emergency Department - When: As needed - Reason: Trouble breathing, Worsening of condition Followup: sb4 - With: Alona Shaw MD - When: 1 week - Reason: Recheck today's complaints, Re-evaluation by your physician Discharge Instructions: - Discharge Summary Sheet sb4 - Otitis Media, Adult sb4 Forms: - Medication Reconciliation Form sb4 - Thank You Letter sb4 - Antibiotic Education sb4 - Prescription Opioid Use sb4 - Patient Portal Instructions sb4 - Leadership Thank You Letter sb4 Prescriptions: - Augmentin 875-125 mg Oral Tablet - take 1 tablet ORAL route every 12 hours for 10 days; 20 tablet; Refills: 0, sb4 Product Selection Permitted Signatures: Jennifer Avila, RN RN Nadege Jay, PA-C PA-C sb4 Ronni Meneses MD MD rt
--- NOTE | 2022-12-04 09:41 | ER ---
Nurse's Notes [facility] Name: Alisa Yanez Age: 32 yrs Sex: Female : 1990 Arrival Date: 12/04/2022 Time: 08:48 Bed IW2 Private MD: Diagnosis: Acute suppurative otitis media without spontaneous rupture of ear drum, left ear Presentation: 12/04 09:04 Chief complaint: Worsening left ear pain x 1 week. Coronavirus screen: At this time, hb the client does not indicate any symptoms associated with coronavirus-19. Ebola Screen: No symptoms or risks identified at this time. Initial Sepsis Screen: Does the patient meet any 2 criteria? No. Patient's initial sepsis screen is negative. Does the patient have a suspected source of infection? No. Patient's initial sepsis screen is negative. Risk Assessment: Do you want to hurt yourself or someone else? Patient reports no desire to harm self or others. Onset of symptoms was November 27, 2022. 09:04 Method Of Arrival: Ambulatory hb 09:04 Acuity: EBEN 4 hb Historical: - Allergies: 09:05 No Known Drug Allergies; hb - Home Meds: 09:05 Claritin Oral [Active]; oral BC [Active]; hb - PMHx: 09:05 None; hb - PSHx: 09:05 None; hb Vital Signs: 09:04 BP 153 / 98; Pulse 78; Resp 16; Temp 98.4(O); Pulse Ox 98% on R/A; Weight 95.25 kg; hb Height 5 ft. 4 in. ; Pain 5/10; 09:04 Body Mass Index 36.05 (95.25 kg, 162.56 cm) hb 09:04 Pain Scale: Adult hb ED Course: 08:51 Patient arrived in ED. ts1 09:05 Triage completed. hb 09:06 Arm band placed on. hb 09:28 Nadege Lindo PA-C is PHCP. sb4 09:28 Ronni Meneses MD is Attending Physician. sb4 09:39 Alona Shaw MD is Referral Physician. sb4 Administered Medications: 09:52 Drug: Rocephin (cefTRIAXone) IM 1 grams IM once Route: IM; Site: left deltoid; hb Outcome: 09:40 Discharge ordered by . sb4 09:52 Patient left the ED. hb Signatures: Jennifer Avila, RN RN Nadege Jay PA-C PA-C sb4 Marilyn Sánchez PAS [facility] ts1
[2022-12-04 09:55] VITALS: BP 153/98; TEMP 98.4; O2SAT 98
[2022-12-04] MEDS ORDERED: LIDOCAINE 1% MPF 2 ML AMPULE ONE (09:57)
[2022-12-04] MEDS ORDERED: CEFTRIAXONE 1000 MG/VIAL ONE (09:57)
== END 2022-12-04 09:52 | disposition home or self-care (01) ==
LOC: ER 08:48
DX: H66.002 Acute suppurative otitis media without spontaneous rupture of ear drum, left ear (principal)
CPT/HCPCS: 96372; 99283; J0696